=== PATIENT | male | born 1970 | race Caucasian/White ===

== ENCOUNTER 2020-05-13 06:49 | Day surgery (SDC) | payer BC ==
[~2020-05-13] VITALS: Ht 175.3 cm; Wt 113.5 kg
[2020-05-13] MEDS ORDERED: Prinivil10 MG (07:05)
== END 2020-05-13 09:00 | disposition home or self-care (01) ==
LOC: ORSCSDS 06:49
PROVIDERS: Student in an Organized Health Care Education/Training Program
PROC: 0DJD8ZZ Inspection of Lower Intestinal Tract, Via Natural or Artificial Opening Endoscopic (ICD-10-PCS; principal; 2020-05-13 08:00)
DX: Z12.11 Encounter for screening for malignant neoplasm of colon (principal); E66.01 Morbid (severe) obesity due to excess calories; Z68.38 Body mass index [BMI] 38.0-38.9, adult; I10 Essential (primary) hypertension; Z79.899 Other long term (current) drug therapy
CPT/HCPCS: J0330; J0461; J2405; J2704; J7120